=== PATIENT | female | born 1995 | race Caucasian/White ===

== ENCOUNTER 2017-06-15 22:11 | Emergency (ER) | payer OTHER ==
[2017-06-15 22:17] VITALS: BP 96/62; PULSE 91; RESP 16; TEMP 98.1; O2SAT 94
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
== END 2017-06-15 22:49 | disposition home or self-care (01) ==
DX: S06.0X0A Concussion without loss of consciousness, initial encounter (principal); S29.9XXA Unspecified injury of thorax, initial encounter; F17.200 Nicotine dependence, unspecified, uncomplicated; V49.49XA Driver injured in collision with other motor vehicles in traffic accident, initial encounter; Y92.89 Other specified places as the place of occurrence of the external cause; Y99.8 Other external cause status; Y93.89 Activity, other specified